=== PATIENT | female | born 1985 | race Caucasian/White ===

== ENCOUNTER 2023-11-15 22:19 | Emergency (ER) | payer BC, SELFPAY ==
[2023-11-15 22:21] VITALS: BP 151/91
--- NOTE | 2023-11-15 22:26 | ED.GENMED ---
History of Present Illness
General
Chief Complaint: Chest Pain
Time Seen by Provider: 11/15/23 22:26
Travel History
Have you had any contact with someone who has COVID-19?: No
Do you have any symptoms of coronavirus? Fever > 100 degrees, chills, cough, shortness of breath, sore throat, loss of taste or smell, muscle aches, or headache?: No
History of Present Illness
History of Present Illness:
HPI: Patient presents with chest discomfort. This has been ongoing for the past week. More recently she has had some discomfort into the jaw. She has tried chiropractic manipulation which has not really helped. She has a history of high
cholesterol but no history of high blood pressure or diabetes. She states her father had a heart attack at the age of 70 but otherwise no significant cardiovascular family history. She has a remote social smoking history. She still has some
discomfort currently and took an aspirin earlier that evening. She does not necessarily have shortness of breath but feels that she has somewhat of a tough time taking a deep breath in.
EXAM:
GENERAL: Well appearing in no distress, elevated BMI
HEENT: Moist oral mucosa
CARDIOVASCULAR: No murmurs, normal heart rate, regular rhythm, No significant chest wall tenderness
PULMONARY: No respiratory distress, breath sounds are clear and equal
ABDOMEN: Soft with no peritoneal signs, no tenderness
NEUROLOGIC: Excellent strength all extremities, no coordination deficits
PSYCHIATRIC: Appropriate mental status, normal insight and judgement
EXTREMITIES: Nontender, no edema, moves all extremities equally
SKIN: No rash, no lesions
TIME OF INITIAL ENCOUNTER: 10:40 PM
NUMBER AND COMPLEXITY OF PROBLEMS ADDRESSED AT THE ENCOUNTER
� Chronic conditions affecting care: High cholesterol
� Acute Exacerbation and/or Progression of Chronic Illness:
� Differential Diagnosis includes: Anxiety, chest wall pain, ACS very unlikely, PE also unlikely
AMOUNT AND/OR COMPLEXITY OF DATA TO BE REVIEWED AND ANALYZED
� I performed an independent evaluation of and my interpretation is:
EKG: Sinus 57, normal axis, no acute ST abnormality, no old to compare
CT:
X-rays: No acute abnormality noted on chest x-ray
Laboratory Studies: White count and hemoglobin are normal, D-dimer reassuring, chemistries including troponin negative
Other:
� Review of other/old records: I reviewed records, the patient was seen here with a laceration in 2021
� Clinical information was obtained by an independent historian: Spoke to at bedside
� Prescriptions/Medications Considered but not given:
� Further testing considered but not performed:
RISK OF COMPLICATIONS AND/OR MORBIDITY OR MORTALITY OF PATIENT MANAGEMENT
� Social determinants of health affecting care: Lives at home
� Discussion with other providers:
� Escalation of care including admission/observation vs risk of discharge considered: The patient has had a week of nonexertional chest discomfort which is rather constant. Giving a dose of Toradol. Unremarkable ED workup
including normal troponin, EKG, and D-dimer, and chest x-ray. Gave her CBC follow-up.
Past History
Past History
ED Past Medical History: None
ED Past Surgical History: None
Phy Exam
Physical Exam
Physical Exam:
See HPI
Scores
Heart Score for Chest Pain Patients
STEMI patient?: Not applicable
Course
Orders/Labs/Results
Orders:
Orders
11/15/23 22:20
Electrocardiogram (*1) Urgent
Reason for Study: Chest Pain
EKG- Treatment ONCE
11/15/23 22:40
CR Chest - 2 Views Urgent
Comment:
Reason For Exam: pain on left
11/15/23 22:45
Complete Blood Count/With Diff Urgent
Comprehensive Metabolic Panel Urgent
D-Dimer Urgent
Troponin I Urgent
11/15/23 23:39
Ketorolac [Toradol] 15 mg IV NOW STA
Abnormal Lab Results
11/15/23
22:45
Absolute Lymphs (auto) 4.5 H 10^3/uL
(1.2-3.4)
Absolute Monos (auto) 0.7 H 10^3/uL
(0.1-0.6)
11/15/23 22:45
11/15/23 22:45
Vital Signs
Initial and Last Documented VS:
Initial Vital Signs
Temp Pulse Resp BP Pulse Ox
98.2 F 60 20 151/91 100
11/15/23 22:21 11/15/23 22:21 11/15/23 22:21 11/15/23 22:21 11/15/23 22:21
Last Documented Vital Signs
Temp Pulse Resp BP Pulse Ox
98.2 F 65 21 130/82 98
11/15/23 22:21 11/15/23 22:45 11/15/23 22:45 11/15/23 22:40 11/15/23 22:52
*Critical Care Note
Total Time (30-74mins, 75-104mins- exclusive of procedures): Not Applicable
ED Attending Note
-
Portions of this chart may have been created with voice recognition software.� Occasional wrong word or��sound alike� substitutions may have occurred due to the inherent limitations of voice recognition software.
Discharge Plan
Departure
Patient Disposition: Home (Routine Discharge)
Date of Disposition: 11/15/23
Time of Disposition: 23:41
Patient with high blood pressure during this ER visit?: Yes
Discharge Problem:
Chest pain
Instructions: Chest Pain CBC Follow Up
Referrals:
Radha Ruiz CRNP [Family Provider] -
Activity Restrictions/Additional Instructions:
Please follow-up with your primary care doctor. I recommend 3-4 [id number] ibuprofen (Motrin) every 8 hours with food for a few days. Return here if worse. Somebody from [facility] cardiology should be contacting you to arrange follow-up.
Interventions
Interventions:
*Risk Screen - Suicide Last Done: 11/15/23 22:22
*General Assessment Last Done: 11/15/23 22:52
*Neglect/Abuse Screening Last Done: 11/15/23 22:22
ED- Fall Risk Assessment Last Done: 11/15/23 22:52
*ED COVID-19 Vaccine History Last Done: 11/15/23 22:52
ED- Cardiac Assessment Last Done: 11/15/23 22:52
Discharge Date and Time
Print Language: BELARUSIAN
[2023-11-15 22:40] VITALS: BP 130/82
[2023-11-15 22:50] VITALS: BMI 36.4
[2023-11-15 22:51] LABS: % Basophils 0.7 % (0-2); % Eosinophils 2.5 % (0-6); % Immature Granulocytes 0.4 % (0-0.5); % Lymphocytes 46.6 % (20.5-51.1); % Monocytes 6.9 % (1.7-9.3); % Neutrophils 42.9 % (42.2-75.2); Absolute Basophils 0.1 10^3/uL (0-0.2); Absolute Eosinophils 0.2 10^3/uL (0-0.7); Absolute Lymphocytes 4.5 10^3/uL (1.2-3.4); Absolute Monocytes 0.7 10^3/uL (0.1-0.6); Absolute Neutrophils 4.1 10^3/uL (1.4-6.5); Hematocrit 41.3 % (37.0-47.0); Hemoglobin 13.7 g/dL (12.0-16.0); Mean Corp Hgb Conc. 33.2 g/dL (33.0-37.0); Mean Corpuscular Hgb 29.2 pg (27.0-31.0); Mean Corpuscular Volume 88.1 fL (81.0-99.0); Mean Platelet Volume 9.8 fL (7.4-10.4); Nucleated Red Blood Cells % 0 %; Platelet Count 253 10^3/uL (130-400); Red Blood Cell Count 4.69 10^6/uL (4.20-5.40); Red Cell Dist. Width 13.6 % (11.5-14.5); White Blood Cell Count 9.7 10^3/uL (4.8-10.8)
[2023-11-15 23:09] LABS: ALT (SGPT) 22 U/L (0-35); AST (SGOT) 22 U/L (14-36); Alkaline Phosphatase 52 U/L (38-126); Blood Urea Nitrogen 11 mg/dl (7-17); Calcium 10.2 mg/dl (8.4-10.2); Carbon Dioxide 28 mmol/L (22-30); Chloride 103 mmol/L (98-107); Estimated Creatinine Clearance 113 ml/min; Glucose 91 mg/dl (70-99); Potassium 4.1 mmol/L (3.5-5.1); Sodium 138 mmol/L (135-145); Total Bilirubin 0.4 mg/dl (0.2-1.3); Total Protein 6.8 g/dl (6.3-8.2); eGFR > 60.00
[2023-11-15 23:14] LABS: Troponin I < 0.012 ng/ml
[2023-11-15 23:27] LABS: D-Dimer 0.31 ug/mlFEU (0.00-0.50)
[2023-11-15] MEDS: TORADOL 15 MG IV (23:42)
== END 2023-11-16 00:07 | disposition home or self-care (01) ==
LOC: EMR 22:19
PROVIDERS: EMERGENCY PHYSICIAN Emergency Medicine; FAMILY PHYSICIAN Nurse Practitioner Family
DX: R07.89 Other chest pain (principal); E78.00 Pure hypercholesterolemia, unspecified; Z87.891 Personal history of nicotine dependence
CPT/HCPCS: 99285; 96374; 71046; 80053; 84484; 85025; 85379; 93005